=== PATIENT | male | born 1955 | race Caucasian/White ===

== ENCOUNTER 2022-03-07 08:28 | Emergency (ER) | payer BC, OTHER | END 2022-03-07 13:02 | disposition home or self-care (01) | LOC: JD.ED 08:28 | DX: R07.9 Chest pain, unspecified (principal); Z79.899 Other long term (current) drug therapy; Z20.822 Contact with and (suspected) exposure to COVID-19 | CPT/HCPCS: 36415; 71045; 71045-26; 80053; 84484; 85025; 85610; 85730; 93005; 93010; 99283; 99285; U0002 ==